=== PATIENT | female | born 1990 | race Caucasian/White ===

== ENCOUNTER 2019-01-07 18:27 | Emergency (ER) | payer OTHER, SELFPAY ==
[2019-01-07 19:12] LABS: #Eosinphils 0.1 thou/uL (0.0-0.7); #Monocytes 0.9 thou/uL (0.11-0.59); %Basophils 0.3 % (0.0-1.0); %Eosinophils 1.1 % (0.0-10.0); %Lymphocytes 25.2 % (21.0-51.0); %Monocytes 7.7 % (0.0-10.0); %Neutrophils 65.7 % (42.0-75.0); Hemoglobin 13.5 g/dL (12.0-16.0); Mean Corpuscular HGB CONC 33.3 g/dL (32.0-36.0); Mean Corpuscular Hemoglobin 29.2 pg (27.0-31.0); Mean Corpuscular Volume 87.6 fL (78.0-98.0); Mean Platelet Volume 7.4 fL (7.4-10.4); Platelet Count 389 thou/uL (130-400); RBC Distribution Width 11.8 % (11.5-14.5); Red Blood Cell (RBC) Count 4.64 mill/uL (4.20-5.40); White Blood Cell (WBC) Count 12.1 thou/uL (4.8-10.8)
[2019-01-07 19:29] LABS: Anion Gap 12 mmol/L (10-20); BUN (Urea Nitrogen) 10 mg/dL (7.0-18.7); Calc. Creatinine Clearance 0 mL/min (70-130); Calcium 9.6 mg/dL (7.8-10.44); Carbon Dioxide 28 mmol/L (22-29); Chloride 101 mmol/L (98-107); Estimated GFR-MDRD Greater than 90; Glucose 83 mg/dL (70-105); Potassium 3.9 mmol/L (3.5-5.1); Sodium 137 mmol/L (136-145)
--- NOTE | 2019-01-07 20:35 | ULT ---
Exam: Endovaginal pelvic ultrasound HISTORY: Vaginal bleeding. patient. Serum beta HCG is 16,000 TECHNIQUE: Endovaginal imaging of the pelvis is performed. Ovaries are interrogated with grayscale, c olor flow, Doppler imaging and spectral waveform analysis FINDINGS: Uterus: No myometrial masses. Uterus measures 4.1 x 7.6 x 5.1 cm Endometrium: Gestational sac, yolk sac. No pole. Mean sac diameter is 1.2 cm corresponding to a gestational age of 6 weeks 0 days. Second endometrial stripe is suggested on the transverse images. Correlate for a possible bicornuate uterus. Left ovary has a normal echotexture measures 1.4 x 1.6 x 3.0 cm. The right ovary has a normal echotexture measures 3.0 x 1.6 x 1.8 cm. No free fluid Ovarian Doppler: Vascular flow to both ovaries IMPRESSION: 1. Single intrauterine gestation with evidence of a gestational sac and yolk sac. pole is not a ppreciated. Follow-up ultrasound and serial beta-hCG studies is recommended. 2. Possible bicornuate uterus. Transcribed Date/Time: 01/07/2019 9:14 PM
== END 2019-01-07 22:31 | disposition home or self-care (01) ==
LOC: ERS 18:27
DX: O20.0 Threatened abortion (principal); Z3A.01 Less than 8 weeks gestation of pregnancy
CPT/HCPCS: 36415; 76856; 80048; 84702; 85025; 86900; 86901; 90384; 96372

== ENCOUNTER 2019-01-09 20:24 | Emergency (ER) | payer OTHER ==
--- NOTE | 2019-01-09 22:43 | ULT ---
TRANSABDOMINAL TRANSVAGINAL PELVIC ULTRASOUND DATE:: 01/09/2019 9:30 PM CLINICAL HISTORY: Follow-up intrauterine . COMPARISON: Prior pelvic ultrasound dated January 07, 2019 TECHNIQUE: Grayscale, color Doppler and spectral Doppler images were obtained of the pelvis see a tra nsabdominal transvaginal approach Uterus: There is a single intrauterine gestation with yolk sac and pole identified. [place]-rump length m easured proximately 3 mm given estimated gestational age of 5 weeks 6 days. No heart tones are demonstrated. Mean sac diameter was 1.3 cm giving estimated gestational age of 6 weeks and 1 day. The yolk sac measuring 2.8 mm. No subchorionic hemorrhage is evident. Ovaries: Size: right measures 2.8 x 1.6 x 2.1 cm; left measures 2.6 x 1.4 x 2.5 cm Mass: None. Flow: Normal Cul-de-sac: No free fluid IMPRESSION: Single intrauterine gestation with a pole now identified. No heart tones were demonstrate d. Yolk sac is again seen. No subchorionic hemorrhage is evident. The average gestational age by ultrasound is 5 weeks and 6 days. Continued clinical follow-up is recommended. Sonographic follow up as clinically indicated.
== END 2019-01-09 23:15 | disposition home or self-care (01) ==
LOC: ERS 20:24
DX: O21.9 Vomiting of pregnancy, unspecified (principal); Z3A.01 Less than 8 weeks gestation of pregnancy
CPT/HCPCS: 36415; 76856; 84702

== ENCOUNTER 2019-09-08 11:53 | Inpatient (IN) | payer OTHER ==
[~2019-09-08 11:53] MED LIST: Bupivacaine/Epinephrine 0.25% 30 ML VIAL ONE; Lidocaine 2% MPF 10 ML AMP (For Epidural Use) ONE; PHENYLEPHRINE-NS 100 MCG/ML 10 ML SYRINGE ONE; PROPOFOL 200 MG/20 ML VIAL ONE; Succinylcholine Chloride 20 MG/ML 10 ml SYRINGE FS ONE
[2019-09-08] MEDS: Lactated Ringer's 1,000 ML IV SCH ×2 (12:06→15:28)
[2019-09-08] MEDS ORDERED: hydrALAZINE 20 MG/ML VIAL ONE (12:14)
[2019-09-08 12:19] VITALS: BMI 38.1
[2019-09-08] MEDS ORDERED: Butorphanol Tartrate 1 MG/ML VIAL SLOW IVP PRN (12:30)
[2019-09-08] MEDS ORDERED: Magnesium Sulfate 20 GM/WATER 500 ML BAG IVPB SCH (12:30)
[2019-09-08] MEDS ORDERED: Calcium Gluc 4.6 MEQ/10 ML (100 MG/ML) SLOW IVP PRN (12:30)
[2019-09-08] MEDS ORDERED: hydrALAZINE 20 MG/ML VIAL SLOW IVP PRN (12:39)
[2019-09-08] MEDS ORDERED: hydrALAZINE 20 MG/ML VIAL SLOW IVP SCH (12:45)
[2019-09-08] MEDS: Ondansetron PF 4 MG/2 ML Vial IVP PRN ×2 (13:04→18:45)
[2019-09-08] MEDS: Magnesium Sulfate 20 gm/500 ml 20 GM/500 ML BAG IVPB SCH ×2 (13:05→20:45)
[2019-09-08 13:09] LABS: Hemoglobin 14.5 g/dL (12.0-16.0); Mean Corpuscular HGB CONC 33.4 g/dL (32.0-36.0); Mean Corpuscular Hemoglobin 29.5 pg (27.0-31.0); Mean Corpuscular Volume 88.3 fL (78.0-98.0); Mean Platelet Volume 10.4 fL (7.4-10.4); Platelet Count 243 thou/uL (130-400); Red Blood Cell (RBC) Count 4.93 mill/uL (4.20-5.40); White Blood Cell (WBC) Count 14.8 thou/uL (4.8-10.8)
[2019-09-08] MEDS ORDERED: Fentanyl 4 mcg/Bup 0.1% Cadd 100 ML ONE ×2 (13:16→18:22)
[2019-09-08] MEDS ORDERED: Lactated Ringer's 500 ML IV SCH (13:30)
[2019-09-08] MEDS: Calcium Carbonate 500 MG ChewTAB PO PRN ×2 (13:31→19:44)
[2019-09-08 13:45] LABS: HBSAg Index 0.16 S/CO (0-0.99); Hep B Surf Ag Non-Reactive S/CO (NonReactive); Syphilis Antibody Nonreactive (Nonreactive); Syphilis Antibody Index 0.04 S/CO (<1.00 Non-Reactive)
[2019-09-08 13:52] LABS: ALT (SGPT) 31 U/L (8-55); AST (SGOT) 23 U/L (5-34); Albumin 3.7 g/dL (3.5-5.0); Alkaline Phosphatase 196 U/L (40-110); Anion Gap 19 mmol/L (10-20); BUN (Urea Nitrogen) 17 mg/dL (7.0-18.7); Bilirubin, Total 0.3 mg/dL (0.2-1.2); Calc. Creatinine Clearance 164 mL/min (70-130); Calcium 9.9 mg/dL (7.8-10.44); Carbon Dioxide 21 mmol/L (22-29); Chloride 100 mmol/L (98-107); Estimated GFR-MDRD 81; Globulin 3.6 g/dL (2.4-3.5); Glucose 93 mg/dL (70-105); Protein, Total 7.3 g/dL (6.0-8.3); Sodium 136 mmol/L (136-145)
[2019-09-08] MEDS ORDERED: Lactated Ringer's 500 ML IV PRN (14:07)
[2019-09-08] MEDS ORDERED: Acetaminophen 325 MG TAB PO PRN (14:07)
[2019-09-08] MEDS ORDERED: diphenhydrAMINE 50 MG/ML VIAL IVP PRN (14:07)
[2019-09-08] MEDS ORDERED: Ondansetron PF 4 MG/2 ML Vial IVP PRN (14:07)
[2019-09-08] MEDS ORDERED: Naloxone HCl 0.4 mg/ml Vial IVP PRN ×2 (14:07)
[2019-09-08] MEDS ORDERED: EPHEDRINE 25 MG/5 ML SYRINGE SLOW IVP PRN (14:07)
[2019-09-08] MEDS ORDERED: Promethazine HCl 25 MG/ML VIAL IM PRN (14:07)
[2019-09-08] MEDS ORDERED: Communication Order-Pharmacy FS SCH (14:15)
[2019-09-08] MEDS ORDERED: Fentanyl 4 mcg/Bupivacaine 0.1% Cassette 100 ML EPIDURAL SCH (14:15)
[2019-09-08] MEDS: hydrALAZINE 20 MG/ML VIAL SLOW IVP PRN (15:24)
--- NOTE | 2019-09-08 18:40 | PDOC.LDPN ---
Labor & Delivery Progress Note - Subjective Subjective: comfortable (epidural in place) - Objective Vital signs reviewed and normal: yes General: NAD, resting SVE: 6 Effacement: 90% Station: -2 FHT: variability present [place] contractions every: 2-3 min IUPC placed: yes FSE placed: yes Plan: continue plan of care, pitocin for augmentation -: epidural in place IUPC and FSE placed on this check to optimize pitocin titration and achieve 250 mVUs
[2019-09-08] MEDS ORDERED: NS / Oxytocin 40 units/1000ml 1,000 ML ONE (21:19)
--- NOTE | 2019-09-08 21:22 | PDOC.LDPN ---
Labor & Delivery Progress Note - Subjective Subjective: comfortable, no concerns - Objective Vital signs reviewed and normal: yes (continuing to have BPs 140s/80s.) General: NAD SVE: 9 Effacement: 90% Station: 0 FHT: category 1, variability present (minimal, now moderate) [place] contractions every: 2-3 min Plan: continue plan of care, pitocin for augmentation -: - epidural in place - continue expectant mgmt - pit at 12, MVUs 210, making adequate change
[2019-09-09] MEDS: hydrALAZINE 20 MG/ML VIAL SLOW IVP PRN (00:29)
[2019-09-09] MEDS ORDERED: Azithromycin 500 MG in Sodium Chloride 0.9% 250 ML 250 ML IVPB SCH (00:45)
[2019-09-09] MEDS ORDERED: Bicitra 30 ML UDCUP PO SCH (00:45)
[2019-09-09] MEDS ORDERED: CEFAZOLIN 2 GM in Premix Bag 1 BAG IVPB SCH (00:45)
[2019-09-09] MEDS ORDERED: Lidocaine 2% 10 ML INJ ONE (00:55)
[2019-09-09] MEDS ORDERED: MORPHINE 5 MG/10 ML PF VIAL ONE (01:02)
[2019-09-09] MEDS ORDERED: Oxytocin 10 UNITS/ML VIAL ONE (01:02)
[2019-09-09] MEDS ORDERED: Fentanyl 100 MCG/2 ML VIAL ONE (01:43)
[2019-09-09] MEDS ORDERED: Dexamethasone 4 mg/ml Vial ONE (01:54)
[2019-09-09] MEDS ORDERED: Ondansetron PF 4 MG/2 ML Vial ONE (01:54)
[2019-09-09] MEDS ORDERED: PHENYLEPHRINE-NS 100 MCG/ML 10 ML SYRINGE ONE (01:58)
[2019-09-09] MEDS ORDERED: Sodium Chloride 0.9% 20 ML ONE (02:04)
[2019-09-09] MEDS ORDERED: Naloxone HCl 0.4 mg/ml Vial IV PRN (02:22)
[2019-09-09] MEDS ORDERED: Meperidine HCl/PF 25 MG/ML VIAL SLOW IVP PRN (02:22)
[2019-09-09] MEDS ORDERED: HYDROmorphone 2 MG/ML VIAL SLOW IVP PRN (02:22)
[2019-09-09] MEDS ORDERED: Promethazine HCl 25 MG SUPP PR PRN (02:22)
[2019-09-09] MEDS ORDERED: diphenhydrAMINE 50 MG/ML VIAL IVP PRN (02:22)
[2019-09-09] MEDS ORDERED: Naloxone HCl 0.4 mg/ml Vial IVP PRN ×2 (02:22)
[2019-09-09] MEDS ORDERED: Promethazine HCl 25 MG/ML VIAL IM PRN (02:22)
[2019-09-09] MEDS ORDERED: Ondansetron HCl/PF 4 MG/2 ML Vial IVP PRN (02:22)
[2019-09-09] MEDS ORDERED: Ondansetron PF 4 MG/2 ML Vial IVP PRN (02:22)
[2019-09-09] MEDS ORDERED: L&D-Morphine 4 MG/ML VIAL SLOW IVP PRN (02:22)
[2019-09-09] MEDS ORDERED: Ketorolac Tromethamine 30 MG/ML VIAL IVP SCH (02:30)
[2019-09-09] MEDS ORDERED: Communication Order-Pharmacy FS SCH (02:30)
[2019-09-09] MEDS ORDERED: Meperidine HCl/PF 25 MG/ML VIAL ONE (03:02)
--- NOTE | 2019-09-09 03:19 | OP ---
DATE OF PROCEDURE: 09/09/2019 PREOPERATIVE DIAGNOSES: 1. Intrauterine at 39 weeks and 5 days. 2. Preeclampsia with severe features. 3. Arrest of descent. POSTOPERATIVE DIAGNOSES: 1. Intrauterine at 39 weeks and 5 days. 2. Preeclampsia with severe features. 3. Arrest of descent. PROCEDURE: Primary lower transverse section. MATTRESS MAKER: Dr. Kamara. PROCEDURE PERFORMED: Primary lower transverse section. ESTIMATED BLOOD LOSS: 500 mL. ANESTHESIA: General. COMPLICATIONS: None. COUNTS: Correct. CONDITION: Stable to recovery room. FINDINGS: Male delivered at 1:40 a.m. on 09/09/2019 with Apgars of seven and nine and weight of 3455 g. DESCRIPTION OF PROCEDURE: Ms. Annabelle Hamlin is a 29-year-old G1, now P1 female, who presented to Labor and Delivery from [facility] for concerns of preeclampsia with severe features. Patient was managed to her labor to complete, complete, zero station at 2217 hours at 3 hours from that point and approximately 2 hours of pushing. The patient had not made any descent or made very little descent of the head. Patient expressed exhaustion and decision was made to proceed with primary for arrest of descent. Patient was taken to the operating room, where her epidural was tested and was found to be inadequate for patient. General anesthesia was then given. Patient was prepared and draped in a normal sterile fashion and placed in dorsal lithotomy position with a leftward tilt. Prior to that point, with the general anesthesia in place, a Pfannenstiel skin incision was made down to the level of the fascia. Fascia was incised and extended laterally with Gustafson scissors. The superior and inferior edges of the fascia were elevated and the underlying rectus muscles were dissected off sharply and bluntly. The peritoneum was then entered into bluntly and the defect was extended bluntly. Yannick O retractor was then placed without difficulty giving adequate exposure of the lower uterine segment. There was some concern about head being lodged and a vaginal hand was requested. However, at the time of hysterotomy, head was easily manipulated to the surgical field and the infant was delivered without difficulty. Cord clamp was delayed per father's request and the infant was taken to the warmer for assessment. The placenta delivered with manual massage of the uterus. The uterus was then closed in two layers with #1 Monocryl in a running locked fashion. The hysterotomy was noted to have good hemostasis and the Yannick O retractor was then removed as well as the lap that had been placed for retraction of the bowel. The peritoneum was then closed with 2-0 chromic in a running fashion. Fascia was closed with 0 Vicryl in a running fashion. Subcutaneous fat was closed with 2-0 plain gut in a running fashion in two layers, and the skin was closed with 4-0 Monocryl in a running fashion. Patient tolerated the procedure well. She was taken to recovery room in stable condition. Job ID: [id number]
[2019-09-09] MEDS ORDERED: Ketorolac Tromethamine 30 MG/ML VIAL ONE ×2 (04:30→13:43)
[2019-09-09] MEDS: Ketorolac Tromethamine 30 MG/ML VIAL IVP PRN ×2 (13:47→19:12)
[2019-09-09] MEDS ORDERED: Lactated Ringer's 1,000 ML IV SCH (14:15)
--- NOTE | 2019-09-09 14:42 | RAD ---
PORTABLE CHEST: 09/09/19 HISTORY: Hypoxia. There is hazy infiltrate in the right lung base. Left lung base is poorly evaluated due to exposure. Cardiomegaly with mild vascular engorgement. IMPRESSION: Hazy right basilar infiltrate. POS: AGW
[2019-09-09] MEDS: guaiFENesin 200 MG TAB PO PRN ×3 (15:11→22:38)
[2019-09-09] MEDS: Oxymetazoline HCl 0.05% (30 ML BOT) NS SCH (15:12)
[2019-09-09] MEDS ORDERED: Oxymetazoline HCl 0.05% (30 ML BOT) NS SCH (15:30)
[2019-09-09] MEDS: NS w/ Oxytocin 10 units 500 ML IV SCH ×2 (15:31→21:31)
[2019-09-09] MEDS: Ampicillin/Sulbactam 1.5 GM in Sodium Chloride 0.9% 100 ML IVPB SCH ×2 (17:06→23:22)
--- NOTE | 2019-09-09 17:16 | PDOC.BPN ---
- Brief Progress Note Earlier in the day pt was complaining of some congestion O2 was satting around 85% Pt was placed on simple mask due to nasal congestion O2 improved to 90% on 5L and 96% on 7L on the mask (approx 45% fio2) Auscultation revealed crackles to right middle and lower lobe CXR was ordered which showed right lower lobe consolidation with mild cardiomegaly and vascular congestion I DC'd patient's fluids outside of her Mg and started her on Unasyn for probable aspiration pna s/p procedural int/extubation Pt received affrin, guaifenisin, toradol, and incentive spirometry - afterwards she was feeling much better and no longer SOB Plan: Will continue to monitor for sings of fluid overload, currently pt without peripheral edema. Reducing IVF as much as possible until Mg DC'd. Will convert to NC O2 once pt's congestion improves. Q1hr incentive spirometry.
[2019-09-09] MEDS ORDERED: Ampicillin/Sulbactam 1.5 GM in Sodium Chloride 0.9% 100 ML IVPB SCH (18:00)
[2019-09-09] MEDS: Lactated Ringer's 1,000 ML IV SCH ×2 (21:29→21:30)
[2019-09-09] MEDS ORDERED: Misoprostol 200 MCG TAB PR PRN (21:47)
[2019-09-09] MEDS ORDERED: NS / Oxytocin 40 units/1000ml 1,000 ML IV SCH (21:47)
[2019-09-09] MEDS ORDERED: hydrALAZINE 20 MG/ML VIAL SLOW IVP PRN (21:47)
[2019-09-09] MEDS ORDERED: Calcium Gluconate 4.6 MEQ in Sodium Chloride 0.9% 100 ML IVPB PRN (21:47)
[2019-09-09] MEDS ORDERED: Magnesium Sulfate 20 gm/500 ml 20 GM/500 ML BAG IVPB SCH (21:47)
[2019-09-09] MEDS ORDERED: Methylergonovine 0.2 MG TAB PO PRN (21:47)
[2019-09-09] MEDS ORDERED: Lanolin Ointment 7 GM TUBE TOP PRN (21:47)
[2019-09-09] MEDS ORDERED: Methylergonovine 0.2 MG/ML VIAL IM PRN (21:47)
[2019-09-09] MEDS ORDERED: Ibuprofen 800 MG TAB PO SCH (22:30)
[2019-09-09] MEDS: Docusate Calcium (SURFAK) 240 MG CAP PO SCH (22:38)
[2019-09-09] MEDS: Simethicone Chewable 80 MG TAB PO PRN (22:39)
[2019-09-09] MEDS: Prenatal Vitamin 1 TAB PO SCH (22:55)
[2019-09-09] MEDS: HYDROcodone/Acetaminophen 5/325 mg Tablet PO PRN (23:32)
[2019-09-10] MEDS: Ampicillin/Sulbactam 1.5 GM in Sodium Chloride 0.9% 100 ML IVPB SCH ×4 (04:22→21:21)
[2019-09-10] MEDS: HYDROcodone/Acetaminophen 5/325 mg Tablet PO PRN ×5 (04:29→21:27)
[2019-09-10] MEDS: Simethicone Chewable 80 MG TAB PO PRN (04:29)
[2019-09-10] MEDS: Ibuprofen 800 MG TAB PO SCH ×3 (04:29→21:13)
[2019-09-10 05:58] LABS: Hemoglobin 10.9 g/dL (12.0-16.0); Mean Corpuscular HGB CONC 33.7 g/dL (32.0-36.0); Mean Corpuscular Hemoglobin 30.5 pg (27.0-31.0); Mean Corpuscular Volume 90.7 fL (78.0-98.0); Mean Platelet Volume 9.2 fL (7.4-10.4); Platelet Count 209 thou/uL (130-400); RBC Distribution Width 13.6 % (11.5-14.5); Red Blood Cell (RBC) Count 3.58 mill/uL (4.20-5.40); White Blood Cell (WBC) Count 13.1 thou/uL (4.8-10.8)
--- NOTE | 2019-09-10 06:27 | PDOC.PP ---
Post Progress Note Post Day #: 1 Subjective: POD2 Tolerating PO well Much less SOB this morning, feels less congested Ambulating well States her pain is well managed + flatus, no BM PO intake tolerated: yes Flatus: yes Ambulation: yes Vital Signs (12 hours) Temp Pulse Resp BP BP Pulse Ox 09/10/19 05:35 99.6 F 09/10/19 04:20 99.5 F 95 20 121/67 94 L 09/09/19 22:30 98.8 F 99 20 129/75 94 L 09/09/19 21:30 105 H 178/98 H 09/09/19 21:00 94 L Weight Weight 103.873 kg - Physical Examination General: NAD Cardiovascular: RRR Deviation from normal: Interval improvement in Rt middle/lower lobe crackles Abdominal: + bowel sounds, lochia (Less than a period) Fundus firm & at: Below umbilicus Skin: CS incision dry & intact Neurological: no gross focal deficits Psychiatric: A&Ox3 Result Diagrams: 09/10/19 05:27 09/08/19 13:13 Additional Labs: Post Labs Blood Type O NEGATIVE 09/08/19 12:55 Hep Bs Antigen Non-Reactive S/CO (NonReactive) 09/08/19 12:55 - Assessment/Plan POD #1 s/p pLTCs - pain controlled - tolerating po, ambulating, + flatus - continue routine post /operative care Aspiration PNA/pneumonitis -Improving oxygenation with lowering O2 requirement -Afebrile overnight -Continue incentive spirometry -Rx Unasyn -Continue to wean O2 as allowed, goal >92% Addendum - Attending - Attending Attestation Date/Time: 09/10/19 0707 I personally evaluated the patient and discussed the management with Dr. Fitzgerald. I agree with the History, Examination, Assessment and Plan documented above.
[2019-09-10] MEDS: Docusate Calcium (SURFAK) 240 MG CAP PO SCH ×2 (08:42→21:14)
[2019-09-10] MEDS: Prenatal Vitamin 1 TAB PO SCH (08:42)
[2019-09-10] MEDS: Oxymetazoline HCl 0.05% (30 ML BOT) NS SCH ×2 (08:43→21:22)
[2019-09-10] MEDS ORDERED: Adacel (T-DAP) 0.5 ML SYRINGE IM ONE (09:00)
[2019-09-10] MEDS: guaiFENesin 200 MG TAB PO PRN ×3 (09:02→17:34)
[2019-09-10] MEDS ORDERED: hydrALAZINE 20 MG/ML VIAL SLOW IVP SCH ×2 (21:00→23:00)
[2019-09-10] MEDS ORDERED: NIFEdipine XL 30 MG TAB PO SCH (21:00)
[2019-09-11] MEDS: Ampicillin/Sulbactam 1.5 GM in Sodium Chloride 0.9% 100 ML IVPB SCH ×4 (04:29→22:13)
[2019-09-11] MEDS: HYDROcodone/Acetaminophen 5/325 mg Tablet PO PRN ×4 (05:59→20:25)
[2019-09-11] MEDS: Ibuprofen 800 MG TAB PO SCH ×3 (06:00→22:12)
[2019-09-11] MEDS: guaiFENesin 200 MG TAB PO PRN ×3 (06:00→20:57)
--- NOTE | 2019-09-11 08:17 | PRG ---
DATE OF SERVICE: 09/11/2019 SUBJECTIVE: The patient is a 29-year-old G1, P0 female, who is postoperative day two, status post a primary for arrest of descent. Her labor course and postoperative course have been complicated by preeclampsia with severe features and aspiration pneumonia, as the patient underwent general anesthesia for her given inadequate pain control with epidural. The patient the night before last was placed on Unasyn and was requiring oxygen until yesterday afternoon. The patient last night started spiking severe range blood pressures into the 170s, requiring two doses of hydralazine and was placed on Procardia XL 30 mg. since that time, her blood pressures have come down into the 130s. The patient reports that she is feeling well this morning. She denies any shortness of breath, is tolerating p.o., voiding on her own, and is ambulating, and has decreased lochia. OBJECTIVE: VITAL SIGNS: Most recent blood pressure is 136/74, saturating 93% on room air, respiratory rate of 18, pulse of 105, temperature 98.6. GENERAL: She appears to be in no acute distress. She is alert, oriented, cooperative, and pleasant to interact. HEENT: Head is normocephalic, atraumatic. ABDOMEN: Her incision is clean, dry, and intact. EXTREMITIES: Nontender, nonedematous. ASSESSMENT AND PLAN: The patient is now postoperative day two status post a primary for arrest of descent, now complicated by aspiration pneumonia and exacerbation of blood pressure with preeclampsia and severe features diagnosed prior to delivery. The patient now is on Procardia XL 30 mg daily. She is on Unasyn IV for her aspiration pneumonia. The patient is off oxygen now. We will continue to watch through the day for good blood pressure control and continued improvement in her lung function. The patient possibly can be discharged tomorrow on Augmentin and Procardia XL. Job ID: [id number]
[2019-09-11] MEDS: Docusate Calcium (SURFAK) 240 MG CAP PO SCH ×2 (08:37→22:12)
[2019-09-11] MEDS: Prenatal Vitamin 1 TAB PO SCH (08:37)
[2019-09-11] MEDS: Oxymetazoline HCl 0.05% (30 ML BOT) NS SCH ×2 (08:38→22:13)
[2019-09-11] MEDS ORDERED: NIFEdipine XL 30 MG TAB PO SCH (09:00)
--- NOTE | 2019-09-11 10:02 | PDOC.EVN ---
Event Note - Event Note Event Note: Called by PP this AM for elevated pulse and decreased O2 sats. 29 yo POD2 s/p C/S with PIH and aspiration pneumonia currently on Unasyn and Procardia, O2 was discontinued earlier. Pulse 110's with O2 sat in upper 80's. Ordered O2 by NC to be placed. Plan: Will consult FP regarding renewed need for O2.
--- NOTE | 2019-09-11 11:26 | PDOC.FPRHP ---
- History of Present Illness Chief Complaint: Consult - Aspiration Pneumonitis History of Present Illness: [facility] [place]: 29yo -> 1 who delivered via pLTCS @ 39.5 on 09/08 @ 0140 for arrest of labor. complicated by preE with severe features. EBL was 500cc. Patient did require General Anesthesia. Post-operatively patient initially did well without significant n/v. POD #0 patient had a desaturation event to mid- 80s on RA, placed on face mask, weaned to NC and eventually weaned to RA. CXR at that time demonstrated R basilar infiltrate and patient was started on Unasyn and aggressive pulmonary toilet. Overnight she had a second desaturation event to high-80s on RA and was placed back on 2L NC with normalization of saturation. Patient states early in AM she took a hot shower and coughed up thick, blood-tinged mucous and later felt short of breath prior to administration of NC. She states she was taking less pain medication yesterday but felt she let the pain get ahead of her and thus was not able to ambulation as much or take as deep of breaths secondary to the pain overnight. This morning , after receiving pain medications, she is feeling better and working with IS multiple times per hour and eager to ambulate this morning. She is tolerating PO well without n/v. No fever/chills. Dyspnea resolved, no CP. - Allergies/Adverse Reactions Allergies Allergy/AdvReac Type Severity Reaction Status Date / Time No Known Allergies Allergy Unverified 09/08/19 12:19 - Home Medications Medication Instructions Recorded Confirmed Type [place] 250 mg PO W2AS-EO 09/08/19 09/08/19 History Calcium/Magnesium/Vitamin D3 1 each PO DAILY 09/08/19 09/08/19 History [Yifan-Mag Complex 300-150 mg Tab] Mv-Mn/Iron/FA/Herbal/Digestive 1 tablet PO DAILY 09/08/19 09/08/19 History [ One Tablet] Vit B Complx/Folic AC/C/Biotin 1 each PO DAILY 09/08/19 09/08/19 History [Vitasure Tablet] - History PMHx: None prior to . PreE with severe features during this . PSHx: pLTCS this admission FHx: Diabetes Social: No tob, illicits, EtOH. - Review of Systems General: denies: fever/chills, weight/appetite/sleep changes, night sweats, fatigue Eyes: denies: vision changes ENT: denies: nasal congestion, rhinorrhea Respiratory: reports: shortness of breath. denies: cough, congestion Cardiovascular: denies: chest pain, palpitation, edema Gastrointestinal: reports: abdominal pain. denies: nausea, vomiting, diarrhea, constipation Genitourinary: denies: incontinence, dysuria Skin: denies: rashes Neurological: denies: numbness, weakness - Vital signs Selected Entries 09/11/19 09/11/19 09/11/19 08:00 08:37 10:33 Pulse Rate 110 H Blood Pressure 139/69 Respiratory 20 Rate O2 Sat by Pulse 90 L 96 Oximetry Oxygen Flow 2 Rate Oxygen Delivery Room Air Nasal Cannula Method Wt 103kg - Physical Exam Constitutional: NAD, awake, alert and oriented, well developed HEENT: PERRLA, EOMI, conjunctiva clear, MMM Neck: supple, trachea midline Heart: RRR, normal S1/S2, no murmurs/rubs/gallops, pulses present, no edema Lungs: no respiratory distress, good air movement, no wheezing, other (mild crackles in R lower lung base) Abdomen: soft, bowel sounds present, other (appropraitely TTP) Musculoskeletal: normal structure, normal tone Neurological: no focal deficit Skin: no rash/lesions Psychiatric: normal mood and affect, good judgment and insight, intact recent and remote memory FMR H&P: Results - Labs Result Diagrams: 09/10/19 05:27 09/08/19 13:13 Lab results: WBC 13.1 thou/uL (4.8-10.8) H 09/10/19 05:27 Hgb 10.9 g/dL (12.0-16.0) L 09/10/19 05:27 Hct 32.4 % (36.0-47.0) L 09/10/19 05:27 MCV 90.7 fL (78.0-98.0) 09/10/19 05:27 Plt Count 209 thou/uL (130-400) 09/10/19 05:27 Sodium 136 mmol/L (136-145) 09/08/19 13:13 Potassium 4.0 mmol/L (3.5-5.1) 09/08/19 13:13 Chloride 100 mmol/L (98-107) 09/08/19 13:13 Carbon Dioxide 21 mmol/L (22-29) L 09/08/19 13:13 BUN 17 mg/dL (7.0-18.7) 09/08/19 13:13 Creatinine 0.83 mg/dL (0.6-1.1) 09/08/19 13:13 Glucose 93 mg/dL (70-105) 09/08/19 13:13 Calcium 9.9 mg/dL (7.8-10.44) 09/08/19 13:13 Total Bilirubin 0.3 mg/dL (0.2-1.2) 09/08/19 13:13 AST 23 U/L (5-34) 09/08/19 13:13 ALT 31 U/L (8-55) 09/08/19 13:13 Alkaline Phosphatase 196 U/L (40-110) H 09/08/19 13:13 Serum Total Protein 7.3 g/dL (6.0-8.3) 09/08/19 13:13 Albumin 3.7 g/dL (3.5-5.0) 09/08/19 13:13 - Radiology Interpretation Chest x-ray Status: image reviewed by me (R basilar infiltrate), report reviewed by ks FMR H&P: A/P - Problem List (1) Acute respiratory failure with hypoxia Current Visit: Yes Status: Acute Code(s): J96.01 - ACUTE RESPIRATORY FAILURE WITH HYPOXIA (2) Aspiration pneumonia Current Visit: Yes Status: Acute Code(s): J69.0 - PNEUMONITIS DUE TO INHALATION OF FOOD AND VOMIT Qualifiers: Aspiration pneumonia type: due to anesthesia during labor and delivery Laterality: right Lung location: lower lobe of lung Qualified Code(s): O74.0 - Aspiration pneumonitis due to anesthesia during labor and delivery (3) Status post Current Visit: Yes Status: Acute Code(s): Z98.891 - HISTORY OF UTERINE SCAR FROM PREVIOUS SURGERY - Plan 29yo -> 1 who delivered via pLTCS @ 39.5 on 09/08 @ 0140 for arrest of labor complicated by preE with severe features now with acute hypoxic respiratory failure 2/2 aspiration pneumonitits vs pneumonia. C consulted for medical management #Acute hypoxic respiratory failure 2/2 aspiration pnuemonitis vs pnuemonia - 2 hypoxic events since general anesthesia for pLTCS for arrest of labor - CXR with R basilar infiltrate - Currently on 2L NC and satting well, will wean as tolerated - Tachycardia to low 100s - afebrile - WBC 13.1 - Will order procal on previous blood and trend procal and CBC in AM - On Unasyn (09/08), will cont and plan to transition to Augmentin tomorrow for discharge for total 7d course - Cont aggressive pulm toliet with ambulation, IS, and cough - Encourage adequate pain control - cont to monitor respiratory status #PPD #2 s/p pLTCS for arrest of labor - PreE with severe features - defer to primary Laborist management, appreciate the opportunity to participate in the care of this patient, thank you for the consult Disposition/LOS: Cont abx, encourage pulm toilet, anticipate discharge tomorrow vs the next day pending clinical course. FMR H&P: Upper Level - Plan Date/Time: 09/11/19 1120 I, [], have evaluated this patient and agree with findings/plan as outlined by transportation logistics internship resident. Pertinent changes/additions are listed here. Addendum - Attending - Attending Attestation Date/Time: 09/11/19 1231 I personally evaluated the patient and discussed the management with Dr. Alba. I agree with the History, Examination, Assessment and Plan documented above with any addition or exceptions noted below. PreE with severe features s/p CD for Arrest with inadequate regional anesthesia , converted to GA with an apparent aspiration event that I am having trouble finding on anesthesia documentation. She overall feels better this AM. Mild dyspnea with exertion. No fever/chills. + cough. On exam she is comfortable, converses in complete sentences. C/o abdominal pain. Lungs with bilateral crackles, no wheezes. Minimal BLE edema. A/P: Aspiration pneumonitis -antibiotics reasonable, no evidence currently of overt superinfection -continue O2 PRN -would anticipate some time for this to resolve. Discussed IS and ambulation extensively -feel PE, COVID, CHF much less likely with a clear precipitating event; I am told she has had good diuresis -that said would recommend pharmacologic dvt ppx as patient seems to be relatively sedentary and has risk factors -bp/pain management per primary Appreciate the consultation, will follow.
[2019-09-11] MEDS ORDERED: Sodium Chloride 0.9% 10 ML ONE (16:23)
[2019-09-12] MEDS: HYDROcodone/Acetaminophen 5/325 mg Tablet PO PRN ×4 (00:33→17:47)
[2019-09-12] MEDS: guaiFENesin 200 MG TAB PO PRN ×4 (00:34→22:19)
[2019-09-12] MEDS: Ampicillin/Sulbactam 1.5 GM in Sodium Chloride 0.9% 100 ML IVPB SCH ×2 (04:16→11:40)
[2019-09-12 05:24] LABS: #Eosinphils 1.4 thou/uL (0.0-0.7); #Lymphocytes 2.4 thou/uL (1.20-3.40); #Monocytes 0.6 thou/uL (0.11-0.59); #Neutrophils 8.4 thou/uL (1.40-6.50); %Basophils 0.4 % (0.0-1.0); %Eosinophils 10.7 % (0.0-10.0); %Lymphocytes 18.7 % (21.0-51.0); %Monocytes 4.7 % (0.0-10.0); %Neutrophils 65.5 % (42.0-75.0); Hemoglobin 11.4 g/dL (12.0-16.0); Mean Corpuscular HGB CONC 33.4 g/dL (32.0-36.0); Mean Corpuscular Volume 89.9 fL (78.0-98.0); Mean Platelet Volume 8.2 fL (7.4-10.4); Platelet Count 256 thou/uL (130-400); RBC Distribution Width 13.3 % (11.5-14.5); Red Blood Cell (RBC) Count 3.79 mill/uL (4.20-5.40); White Blood Cell (WBC) Count 12.9 thou/uL (4.8-10.8)
[2019-09-12] MEDS: Ibuprofen 800 MG TAB PO SCH ×3 (05:41→21:11)
--- NOTE | 2019-09-12 06:47 | PDOC.PP ---
Post Progress Note Post Day #: POD3 Subjective: Feeling better this AM. Elevated BPs to 150-160s last PM. Pulse ox 95% this AM on RA PO intake tolerated: yes Flatus: yes Ambulation: yes Vital Signs (12 hours) Temp Pulse Resp BP BP BP Pulse Ox 09/12/19 04:13 98.6 F 94 16 132/68 94 L 09/12/19 00:25 99.2 F 101 H 16 144/86 H 96 09/11/19 20:31 104 H 155/79 H 09/11/19 20:16 98.2 F 105 H 18 165/95 H 96 Weight Weight 103.873 kg - Physical Examination General: NAD Respiratory: non-labored breathing Abdominal: no distention Skin: CS incision dry & intact Neurological: no gross focal deficits Psychiatric: normal affect Result Diagrams: 09/12/19 05:06 09/08/19 13:13 Additional Labs: Post Labs Blood Type O NEGATIVE 09/08/19 12:55 Hep Bs Antigen Non-Reactive S/CO (NonReactive) 09/08/19 12:55 - Assessment/Plan FP consult yesterday appreciated. Continue IS, turn, cough Will increase Procardia XL to 60 QD and observe
--- NOTE | 2019-09-12 06:56 | PDOC.FM ---
- Subjective Subjective: Doing well this morning, off O2 since yesterday after lunch. Ambulating well. No SOB, CP, n/v, fever/chills. She is tolerating PO well. Coughing up less phlegm. Using IS. Pain well-controlled. - Objective MAR Reviewed: Yes Vital Signs & Weight: Vital Signs (12 hours) Temp Pulse Resp BP BP BP Pulse Ox 09/12/19 04:13 98.6 F 94 16 132/68 94 L 09/12/19 00:25 99.2 F 101 H 16 144/86 H 96 09/11/19 20:31 104 H 155/79 H 09/11/19 20:16 98.2 F 105 H 18 165/95 H 96 Weight Weight 103.873 kg Result Diagrams: 09/12/19 05:06 09/08/19 13:13 Phys Exam - Physical Examination Constitutional: NAD (resting comfortably, in good spirits) HEENT: moist MMs Neck: supple Respiratory: no wheezing, no rales, no rhonchi, clear to auscultation bilateral Cardiovascular: RRR, no significant murmur, no rub Gastrointestinal: soft, positive bowel sounds appropriately tender to palpation Musculoskeletal: no edema Neurological: non-focal, moves all 4 limbs Psychiatric: normal affect, A&O x 3 Dx/Plan (1) Acute respiratory failure with hypoxia Code(s): J96.01 - ACUTE RESPIRATORY FAILURE WITH HYPOXIA Status: Acute (2) Aspiration pneumonia Code(s): J69.0 - PNEUMONITIS DUE TO INHALATION OF FOOD AND VOMIT Status: Acute Qualifiers: Aspiration pneumonia type: due to anesthesia during labor and delivery Laterality: right Lung location: lower lobe of lung Qualified Code(s): O74.0 - Aspiration pneumonitis due to anesthesia during labor and delivery (3) Status post Code(s): Z98.891 - HISTORY OF UTERINE SCAR FROM PREVIOUS SURGERY Status: Acute - Plan Plan: 29yo -> 1 who delivered via pLTCS @ 39.5 on 09/08 @ 0140 for arrest of labor complicated by preE with severe features now with acute hypoxic respiratory failure 2/2 suspected aspiration pneumonitits. C consulted for medical management #Acute hypoxic respiratory failure 2/2 aspiration pnuemonitis - 2 hypoxic events since general anesthesia for pLTCS for arrest of labor - CXR with R basilar infiltrate - Initially on 2L NC, weaned to RA yesterday at 1400 - Tachycardia improving. Afebrile. - WBC 13.1 -> 12.9, no bands - Procal 0.04 -> 0.03 - On Unasyn (09/08), plan to transition to Augmentin for total 7d course - Cont aggressive pulm toliet with ambulation, IS, and cough - Encourage adequate pain control - cont to monitor respiratory status, overall improved #PPD #3 s/p pLTCS for arrest of labor - PreE with severe features - defer to primary Laborist management, appreciate the opportunity to participate in the care of this patient, thank you for the consult Disposition/LOS: Cont abx to transition to PO, encourage pulm toilet, anticipate discharge today vs tomorrow pending primary team. Addendum - Attending - Attending Attestation Date/Time: 09/12/19 [id number] I personally evaluated the patient and discussed the management with Dr. Alba. I agree with the History, Examination, Assessment and Plan documented above with any addition or exceptions noted below. Continued improvement and now off oxygen. Continue pulmonary toilet/IS. Antimicrobials as above. Recommend DVT ppx (per primary) if stays additional day.
[2019-09-12] MEDS: Prenatal Vitamin 1 TAB PO SCH (08:37)
[2019-09-12] MEDS: NIFEdipine XL 60 MG TAB PO SCH (08:37)
[2019-09-12] MEDS: Oxymetazoline HCl 0.05% (30 ML BOT) NS SCH ×2 (08:38→21:12)
[2019-09-12] MEDS: Docusate Calcium (SURFAK) 240 MG CAP PO SCH ×2 (08:38→21:11)
[2019-09-12] MEDS ORDERED: Amoxicillin/Potassium Clav 875 MG TAB PO SCH (11:00)
[2019-09-12] MEDS: Amoxicillin/Potassium Clav 875 MG TAB PO SCH (21:11)
[2019-09-13] MEDS: HYDROcodone/Acetaminophen 5/325 mg Tablet PO PRN (03:48)
[2019-09-13] MEDS: Ibuprofen 800 MG TAB PO SCH (04:27)
--- NOTE | 2019-09-13 06:48 | PDOC.FM ---
- Subjective Subjective: Doing very well this morning. Ambulating well, went outside for a walk yesterday. Tolerating PO well without n/v, pain well-controlled. No SOB, CP, WHITE , vision changes, dizziness/lightheadedness. Using IS. Is very eager to go home. - Objective MAR Reviewed: Yes Vital Signs & Weight: Vital Signs (12 hours) Temp Pulse Resp BP Pulse Ox 09/13/19 04:00 98.0 F 84 20 142/63 H 98 09/13/19 01:15 98.0 F 81 18 134/60 98 09/12/19 21:50 97.6 F 99 20 135/64 98 Weight Weight 103.873 kg Result Diagrams: 09/12/19 05:06 09/08/19 13:13 Phys Exam - Physical Examination Constitutional: NAD HEENT: moist MMs Neck: supple Respiratory: no wheezing, no rales, no rhonchi, clear to auscultation bilateral Cardiovascular: RRR, no significant murmur, no rub Gastrointestinal: soft, positive bowel sounds appropriately TTP Musculoskeletal: no edema Neurological: moves all 4 limbs Psychiatric: normal affect, A&O x 3 Dx/Plan (1) Acute respiratory failure with hypoxia Code(s): J96.01 - ACUTE RESPIRATORY FAILURE WITH HYPOXIA Status: Acute (2) Aspiration pneumonia Code(s): J69.0 - PNEUMONITIS DUE TO INHALATION OF FOOD AND VOMIT Status: Acute Qualifiers: Aspiration pneumonia type: due to anesthesia during labor and delivery Laterality: right Lung location: lower lobe of lung Qualified Code(s): O74.0 - Aspiration pneumonitis due to anesthesia during labor and delivery (3) Status post Code(s): Z98.891 - HISTORY OF UTERINE SCAR FROM PREVIOUS SURGERY Status: Acute - Plan Plan: 29yo -> 1 who delivered via pLTCS @ 39.5 on 09/08 @ 0140 for arrest of labor complicated by preE with severe features who developed acute hypoxic respiratory failure 2/2 aspiration pneumonitits. C consulted for medical management #Acute hypoxic respiratory failure 2/2 aspiration pnuemonitis - 2 hypoxic events since general anesthesia for pLTCS for arrest of labor - CXR with R basilar infiltrate - Initially on 2L NC, weaned to RA and on RA for past 48 hours - Tachycardia resolved. Afebrile. - WBC 13.1 -> 12.9, no bands. Procal 0.04 -> 0.03 - S/p Unasyn x3d, transitioned to Augmentin Day 4/7 - Cont aggressive pulm toliet with ambulation, IS, and cough - Encourage adequate pain control - cont to monitor respiratory status, overall improved - Consider pharm VTE if longer hospitalization however patient has increased ambulation over past 24 hours #PPD #4 s/p pLTCS for arrest of labor - PreE with severe features - defer to primary Laborist management, appreciate the opportunity to participate in the care of this patient, thank you for the consult Disposition/LOS: Complete 7 day course of abx, encourage pulm toilet, ready for discharge from respiratory standpoint. Addendum - Attending - Attending Attestation Date/Time: 09/13/19 1033 I personally evaluated the patient and discussed the management with the team. I agree with the History, Examination, Assessment and Plan documented above with any addition or exceptions noted below. CTAB. No CAMPOS. Complete antibiotics and cleared for dc from a medical standpoint.
[2019-09-13] MEDS: Docusate Calcium (SURFAK) 240 MG CAP PO SCH (08:49)
[2019-09-13] MEDS: NIFEdipine XL 60 MG TAB PO SCH (08:49)
[2019-09-13] MEDS: Amoxicillin/Potassium Clav 875 MG TAB PO SCH (08:49)
[2019-09-13] MEDS: Prenatal Vitamin 1 TAB PO SCH (08:49)
[2019-09-13] MEDS: Oxymetazoline HCl 0.05% (30 ML BOT) NS SCH (08:51)
[2019-09-13 09:17] VITALS: BP 124/59; TEMP 98.3
--- NOTE | 2019-09-13 18:03 | DIS ---
DATE OF ADMISSION: 09/08/2019 DATE OF DISCHARGE: 09/13/2019 ADMITTING DIAGNOSES: 1. Intrauterine at 39 weeks and 5 days. 2. Preeclampsia with severe features. 3. Labor. DISCHARGE DIAGNOSES: 1. Intrauterine at 39 weeks and 5 days. 2. Preeclampsia with severe features. 3. Labor. PROCEDURE PERFORMED: Primary lower transverse section, antibiotics, chest x-ray. HOSPITAL COURSE: The patient is a 29-year-old G1, now P1 female who was transferred from [facility] to the hospital for care due to concerns of preeclampsia. The patient presented with elevated blood pressures with severe features and was admitted to the hospital and placed on magnesium for seizure prophylaxis and IV antihypertensive medications. Labor progressed to complete-complete and pushed for 1-1/2 to 2 hours being complete for 3 with no descent of the fetus which was remaining at about 0 station. Ultimately, a primary was performed for arrest of descent. For complete details, please refer to the operative note. Her operative course was complicated by general anesthesia due to concerns of inadequate coverage with her epidural per patient's communication. Her course has been complicated by persistently elevated blood pressures requiring antihypertensive medication with 2 adjustments and pulmonary complications with suspected aspiration pneumonia requiring IV antibiotics and nasal oxygen. Over the course of her stay, which has been about 4 days, she has shown marked improvement and is not requiring any more oxygen, has not been febrile. Blood pressures have been under control the last 24 hours with Procardia XL 60 mg. The patient is ambulating, tolerating a diet, voiding on her own, and having good pain control. PHYSICAL EXAMINATION: VITAL SIGNS: Blood pressure this morning was 142/63, temperature 98.0, pulse of 84, respiratory rate of 20, saturating 98% on room air. She had a blood pressure max in the last 24 hours of 157/88 at around noon. GENERAL: Patient appears to be in no acute distress. She is alert and oriented, cooperative and pleasant to interact with. HEENT: Head is normocephalic and atraumatic. LUNGS: Clear to auscultation bilaterally. HEART: Has a regular rate and rhythm. ABDOMEN: Soft. Fundus is firm at the umbilicus, -1. The incision is clean, dry, and intact with suture. EXTREMITIES: Nontender and nonedematous. DISCHARGE INSTRUCTIONS: The patient is being discharged home with Procardia XL 60 mg sufficient for 2 weeks; Augmentin 875 to be taken twice a day for the next 4 days, to complete a 7-day course of antibiotics; ibuprofen; tramadol; and [id number] Tylenol. DISCHARGE INSTRUCTIONS: She has instructions to not drive for 2 weeks, to limit her lifting to 15 pounds for the next 4 to 6 weeks, to seek medical attention if she experiences fever, increasing pain or bleeding, drainage or redness from her incision site, or other medical concerns. She is to follow up with her vp customer service, Bubba Roberts, unless there are complications she can follow up here in the hospital or at [facility] if it does not require urgency. Job ID: [id number]
== END 2019-09-13 12:10 | disposition home or self-care (01) | DRG 786 ==
LOC: L&D/OP 11:53 → L&D 16:22 → 3SW 09-09 23:18
PROVIDERS: ADMIT Obstetrics & Gynecology; ATTEND Obstetrics & Gynecology
PROC: 10D00Z1 Extraction of Products of Conception, Low, Open Approach (ICD-10-PCS; principal; 2019-09-09)
DX: O14.14 Severe pre-eclampsia complicating childbirth (principal); J96.01 Acute respiratory failure with hypoxia; O89 Complications of anesthesia during the puerperium; O32.4XX0 Maternal care for high head at term, not applicable or unspecified; Z3A.39 39 weeks gestation of pregnancy; Z37.0 Single live birth; O99.53 Diseases of the respiratory system complicating the puerperium
CPT/HCPCS: 36415; 51702; 71045; 80053; 81003; 84145; 85025; 85027; 86780; 86850; 86900; 86901; 87340; 99285; J0295; J0360; J1100; J1885; J2001; J2175; J2274; J2405; J2590; J2704; J3010; J3475; J3490